=== PATIENT | female | born 1950 | race Caucasian/White ===

== ENCOUNTER → 2017-03-16 | Outpatient (CLI) | payer MEDICARE, SELFPAY ==
[~2017-03-16] MED LIST: CALCIUM + D 6001 TA1 PO; CLARITIN10 M2 PO; ESTRACE; ESTRADIOL; FLONASE 0.05% N16 G1; GARLIC1 CAP PO; OMEPRAZOLE20 M1 PO; OMEPRAZOLE20 M2 PO; PRENATAL1 TA1 PO; SYMBICORT INH; VAGIFEM10 MCG VAG
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
--- NOTE | ~2017-03-16 | MR113 ---
[facility] A Service of [facility] & [facility] RADIOLOGY TEXT RESULTS PATIENT: KACEY GTZ LOCATION: [facility] : 49 UNIT #: [id number] AGE: [address]: Gloria Lerma MD SEX: F ORDER DR: [id number] [facility] [address] [place], [place] [address] [id number] O MR#: [id number] Acc #: [id number] NAME: KACEY GTZ. : 1950 SEX: F STUDY DATE/TIME: 03/16/2017 14:40 UNIT: [facility] ROOM: STUDY DESCRIPTION: MR Lumbar Wo Contrast Attending Physician: Gloria Lerma M.D. Referring Physician: Gloria Lerma M.D. Ordering Physician: Gloria Lerma M.D. Primary Care Physician: Gloria Lerma M.D. MRI CENTER REPORT This report is preliminary unless electronic signature is present. EXAM Lumbar spine MRI no contrast 03/16/2017 PROCEDURE Routine unenhanced lumbar spine MRI. CLINICAL HISTORY Low back pain radiating to left side and left hip and some leg numbness, symptoms since August 2016. FINDINGS There is a grade 1 anterolisthesis at L3-4. There is a slight levoscoliosis. Bone marrow signal is within normal limits and the distal cord and conus are normal in position and appearance. The paraspinous soft tissues are normal. At L1-2, the disc, canal and foramina are normal. At L2-3, there is no canal stenosis. Minimal disc and facet change cause mild right and borderline left foraminal stenosis. At L3-4, there is anterolisthesis, facet arthropathy and pseudo disc bulge but no canal stenosis but mild right and left foraminal stenosis. At L4-5, there is disc and endplate change but no canal stenosis but [id number] or moderate right and left foraminal stenosis. At L5-S1, there is disc and endplate change and no canal stenosis, but [id number] right and mild left foraminal stenosis. IMPRESSION Degenerative changes as above, no substantial canal compromise at any level but there is foraminal narrowing at several levels described above [facility]. [facility] A Service of [facility] & [facility] RADIOLOGY TEXT RESULTS PATIENT: KACEY GTZ LOCATION: [facility] : 49 UNIT #: [id number] AGE: [address]: Gloria Lerma MD SEX: F ORDER DR: in detail on a level by level basis. Dictated by... John Emerson M.D. THIS IS AN ELECTRONICALLY VERIFIED REPORT John Emerson M.D. at 03/21/2017 10:32 AM CHELSEA/noel TD: 03/19/2017 14:11 JOB #: [id number] MRI CENTER REPORT Page 1 of 1 COPY
== END | disposition home or self-care (01) ==
LOC: CMRI 13:09
DX: M43.06 Spondylolysis, lumbar region (principal); M51.16 Intervertebral disc disorders with radiculopathy, lumbar region; M99.83 Other biomechanical lesions of lumbar region; M16.0 Bilateral primary osteoarthritis of hip; M76.9 Unspecified enthesopathy, lower limb, excluding foot
CPT/HCPCS: 72148; 73721